=== PATIENT | male | born 1975 | race Caucasian/White ===

== ENCOUNTER 2018-12-25 21:24 | Emergency (ER) | payer OTHER ==
[2018-12-25] MEDS ORDERED: IV NS 0.9% 1,000 ML BAG IV ONE (22:30)
[2018-12-25] MEDS ORDERED: ONDANSETRON HCL/PF 4 MG/2 ML VIAL IVP ONE (22:30)
[2018-12-25] MEDS ORDERED: MORPHINE SULFATE INJ 2 MG/ML DISP.SYRIN IV ONE (22:30)
[2018-12-25] MEDS ORDERED: MORPHINE SULFATE INJ 4 MG/ML DISP.SYRIN ONE (22:42)
[2018-12-25] MEDS ORDERED: ONDANSETRON HCL/PF 4 MG/2 ML VIAL ONE (22:42)
[2018-12-25] MEDS ORDERED: IV NS 0.9% 250 ML IV ONE (23:15)
[2018-12-25] MEDS ORDERED: CT SWABBABLE VALVE TRANS SET 1 EA INFUS.SET MC ONE (23:15)
[2018-12-25] MEDS ORDERED: IOHEXOL-300 100 ML VIAL IV ONE (23:15)
== END 2018-12-26 00:18 | disposition home or self-care (01) ==
DX: S20.212A Contusion of left front wall of thorax, initial encounter (principal); X58.XXXA Exposure to other specified factors, initial encounter; Y93.61 Activity, american tackle football; Y92.89 Other specified places as the place of occurrence of the external cause; Y99.8 Other external cause status
CPT/HCPCS: 36415; 71045; 71260; 80048; 84484; 85025; 93005 ×2; 96374; 96375; 99284; J2270; J2405; J7030; J7050; Q9967

== ENCOUNTER 2022-02-12 17:14 | Emergency (ER) | payer MEDICAID, OTHER ==
[~2022-02-12] VITALS: Ht 167.6 cm; Wt 77.1 kg
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
[2022-02-12] MEDS ORDERED: LIDOCAINE 2%-EPI 1:100,000 30 ML VIAL ONE (18:35)
[2022-02-12] MEDS ORDERED: HYDROMORPHONE 1 MG/1 ML DISP.SYRIN ONE (18:35)
[2022-02-12] MEDS: HYDROMORPHONE 1 MG/1 ML DISP.SYRIN IM ONE (18:40)
[2022-02-12] MEDS: LIDOCAINE 2%-EPI 1:100,000 30 ML VIAL TP ONE (18:42)
--- NOTE | 2022-02-12 18:52 | NUR ---
TAKEN TO CT VIA COLE
[2022-02-12] MEDS ORDERED: LIDOCAINE 1%-EPI 1:100,000 20 ML VIAL ONE (19:46)
--- NOTE | 2022-02-12 20:09 | NUR ---
Patient discharged to home in stable condition. Written and verbal after care instructions given. Patient verbalizes understanding of instruction.
[2022-02-12] MEDS ORDERED: HYDROCODONE/APAP 10/325MG TABLET ONE (21:12)
[2022-02-12] MEDS: HYDROCODONE/APAP 7.5/325MG 1 EACH TABLET PO ONE (21:13)
[2022-02-12] MEDS: HYDROCODONE/APAP 10/325MG TABLET PO ONE (21:14)
[2022-02-12] MEDS ORDERED: HYDR-3976 PO (22:26)
[2022-02-12] MEDS ORDERED: NAPR-1164 PO (22:26)
[2022-02-12 23:09] VITALS: BP 120/66
== END 2022-02-12 20:09 | disposition home or self-care (01) ==
LOC: ER 17:19
DX: S01.01XA Laceration without foreign body of scalp, initial encounter (principal); Z79.899 Other long term (current) drug therapy; W05.1XXA Fall from non-moving nonmotorized scooter, initial encounter; Y93.89 Activity, other specified; Y92.89 Other specified places as the place of occurrence of the external cause; Y99.8 Other external cause status
CPT/HCPCS: 99284; 70450; 12002; 96372; 72220; 73630; 73030; J3490 ×2; J1170

== ENCOUNTER 2022-12-01 00:41 | Emergency (ER) | payer MEDICAID ==
[~2022-12-01] VITALS: Ht 167.6 cm; Wt 77.1 kg
[~2022-12-01 00:41] MED LIST: HYDR-3976 PO; NAPR-1164 PO
[2022-12-01 01:57] VITALS: TEMP 97.9
[2022-12-01] MEDS ORDERED: IBUPROFEN 400 MG TABLET ONE (02:14)
[2022-12-01] MEDS ORDERED: IBUPROFEN 400 MG TABLET PO ONE (02:30)
[2022-12-01] MEDS ORDERED: OXYC-128 PO (05:25)
[2022-12-01] MEDS ORDERED: HYDROCODONE/APAP 5/325MG TABLET PO ONE (05:30)
[2022-12-01] MEDS ORDERED: HYDROCODONE/APAP 5/325MG TABLET ONE (05:31)
[2022-12-01 05:42] VITALS: BP 120/72; O2SAT 98
== END 2022-12-01 05:43 | disposition home or self-care (01) ==
LOC: ER 00:44
DX: S92.321A Displaced fracture of second metatarsal bone, right foot, initial encounter for closed fracture (principal); Z79.899 Other long term (current) drug therapy; W17.89XA Other fall from one level to another, initial encounter; Y93.89 Activity, other specified; Y92.89 Other specified places as the place of occurrence of the external cause; Y99.8 Other external cause status
CPT/HCPCS: 73630-TC